=== PATIENT | female | born 1985 | race Caucasian/White ===

== ENCOUNTER 2020-10-08 15:44 | Emergency (ER) | payer OTHER, SELFPAY ==
--- NOTE | ~2020-10-08 | XR_ITS ---
EXAMINATION: XR chest 1V portable DATE: 10/08/2020 16:13 INDICATION: Shortness of breath. Headache. No sense of smell or taste. TECHNIQUE: frontal view of the chest was obtained. COMPARISON: None FINDINGS: The lungs are clear with no focal airspace opacities, pulmonary edema, pleural effusion or pneumothor ax. The cardiomediastinal silhouette is normal. Visualized bones and soft tissues are unremarkable. IMPRESSION: 1. No acute cardiopulmonary disease. Reviewed, dictated and finalized at location A. [employer] TRI[employer] SPECIALIST
[2020-10-08 15:48] VITALS: BP 105/88; PULSE 91; RESP 17; TEMP 36.1; O2SAT 100
[2020-10-08 16:02] VITALS: O2SAT 100
--- NOTE | 2020-10-08 16:08 | ED.GENADULT ---
HPI - General Adult General Chief complaint: Upper Respiratory Infection Stated complaint: trouble breathing Time Seen by Provider: 10/08/20 15:58 Source: patient Mode of arrival: ambulatory Limitations: no limitations History of Present Illness HPI narrative: Patient is a 34-year-old female with upper respiratory symptoms for 5 days congestion rhinorrhea headache loss of taste and smell cough productive of phlegm denies vomiting diarrhea intermittent fevers noted presents afebrile nontoxic-appearing not take anything for her symptoms has not been seen for this complaint Related Data Allergies Allergy/AdvReac Type Severity Reaction Status Date / Time codeine Allergy Unknown Vomiting Verified 10/08/20 15:50 oxytocin Allergy Unknown Vomiting Verified 10/08/20 15:50 acetaminophen AdvReac Unknown VOMITING Verified 10/08/20 15:50 Review of Systems Review of Systems: All systems reviewed & are unremarkable except as noted in HPI and below PMFSH Past Medical History Medical History Hepatitis C Social History Social History Gender identity (if verbalized by the patient): Female Exam Narrative: Exam Narrative: GENERAL: Well-appearing, well-nourished, and in no acute distress. HEAD: Normocephalic, atraumatic. EYES: PERRLA and EOMI. ENT: Nares clear, no rhinorrhea or epistaxis. CHEST: Clear to auscultation. No respiratory distress. No wheezes rales or rhonchi HEART: Regular rate and rhythm. No murmur heard. EXTREMITIES: Normal range of motion. No edema. SKIN: Warm, dry, no rash. NEURO: No focal deficits. Alert and oriented x3. Cranial nerves II through XII grossly intact PSYCH: Normal mood and affect. Course Course Emergency Course: Patient in the room in no distress aware of case findings treatment plan diagnosis will be discharged home normal vital signs no pneumonia tested for Covid provided with primary care follow-up and reasons to return Vital Signs Vital signs: Vital Signs Temperature 97 F L 10/08/20 15:48 Pulse Rate 91 10/08/20 15:48 Respiratory Rate 17 10/08/20 15:48 Blood Pressure 105/88 10/08/20 15:48 Pulse Oximetry 100 10/08/20 15:48 Temperature 97 F L 10/08/20 15:48 Pulse Rate 91 10/08/20 15:48 Respiratory Rate 17 10/08/20 15:48 Blood Pressure 105/88 10/08/20 15:48 Pulse Oximetry 100 10/08/20 16:02 Medical Decision Making MDM Narrative Medical decision making narrative: Patient with upper respiratory infection will be tested for Covid normal vital signs no pneumonia afebrile nontoxic-appearing. Vital Signs Vital Signs: Vital Signs Temperature 97 F L 10/08/20 15:48 Pulse Rate 91 10/08/20 15:48 Respiratory Rate 17 10/08/20 15:48 Blood Pressure 105/88 10/08/20 15:48 Pulse Oximetry 100 10/08/20 15:48 Temperature 97 F L 10/08/20 15:48 Pulse Rate 91 10/08/20 15:48 Respiratory Rate 17 10/08/20 15:48 Blood Pressure 105/88 10/08/20 15:48 Pulse Oximetry 100 10/08/20 16:02 Discharge Plan Discharge Clinical Impression: Upper respiratory infection Patient Disposition: Home, Self-Care Condition: Stable Instructions: Antibiotic Form, COVID-19 (Coronavirus Disease 2019) (ED) Additional Instructions: Follow up with your primary care provider within 1-2 days to set up for reevaluation of to obtain your COVID-19 results. Go to ER for shortness of breath, difficulty breathing, chest pain, fever/chills, weakness, nauseau/vomitting, etc. or any other concerns. Stay well-hydrated Take any prescribed medications as directed. Self quarantine until you have received your COVID-19 results If you do not have a drug allergy to tylenol or motrin and can tolerate it then take tylenol or motrin as needed for discomfort/pain. Prescriptions: New ibuprofen [IBU] 600 mg tablet 600 mg PO QID PRN (Reason: fever or pain)
[2020-10-08 17:28] VITALS: BP 122/59; PULSE 86; RESP 16; O2SAT 99
[2020-10-09 19:17] LABS: SARS-CoV-2 RNA PCR Negative
== END 2020-10-08 17:29 | disposition home or self-care (01) ==
PROVIDERS: Emergency Medicine; Emergency Provider Emergency Medicine
DX: J06.9 Acute upper respiratory infection, unspecified (principal); Z20.828 Contact with and (suspected) exposure to other viral communicable diseases; Z86.19 Personal history of other infectious and parasitic diseases
CPT/HCPCS: 71045; 87635; 99283; C9803; U0003

== ENCOUNTER 2024-12-23 15:10 | Emergency (ER) | payer SELFPAY ==
--- NOTE | 2024-12-23 15:13 | ED_ITS ---
HPI - URI/Sore Throat General Chief Complaint: Dental/Oral Stated Complaint: Congested/Dental Pain Time Seen by Provider: 12/23/24 15:11 Source: patient Mode of arrival: ambulatory Limitations: no limitations History of Present Illness HPI Narrative: Patient is a 39-year-old female who presents with congestion, sinus pressure and left upper dental pain for 1 week. Patient states her wisdom tooth is loose and has tried pulling it out herself. Patient reports swelling to left cheek and pain in left sinus cavity to touch. Has taken tylenol. Denies any fever, chills, nausea, vomiting, diarrhea. Related Data Allergies Allergy/AdvReac Type Severity Reaction Status Date / Time codeine Allergy Unknown Vomiting Verified 12/23/24 15:13 oxytocin Allergy Unknown Vomiting Verified 12/23/24 15:13 acetaminophen AdvReac Unknown VOMITING Verified 12/23/24 15:13 Review of Systems Review of Systems: All systems reviewed & are unremarkable except as noted in HPI and below Constitutional: Constitutional: Denies body ache(s), Denies fever(s), Denies headache(s), Denies malaise and Denies weakness Eyes: Eyes: Denies loss of vision ENT: Reports otalgia, Reports facial pain (jaw), Denies headache(s), Reports nasal congestion, Denies nasal discharge, Reports sinus pain and Denies sore throat Cardiovascular: Cardiovascular: Denies chest pain, Denies irregular heart rhythm and Denies dyspnea Respiratory: Respiratory: Denies dyspnea Gastrointestinal: Gastrointestinal: Denies abdominal pain, Denies melena, Denies hematochezia, Denies diarrhea, Denies nausea and Denies vomiting Musculoskeletal: Musculoskeletal: Denies back pain, Denies myalgias and Denies arthralgias Integumentary/Breasts: Skin/Breast: Denies pruritus and Denies rash Neurologic: Denies headache(s), Denies loss of vision and Denies weakness Psychiatric: Psychiatric: Reports no additional psychiatric complaints PMFSH Past Medical History Medical History Hepatitis C Social History Social History Gender identity (if verbalized by the patient): Female Comments At time of signature, agree with nursing past medical, surgical, social and family history. There is no relevant family history pertinent to the presenting complaint. Exam Const: General: cooperative, healthy appearing, comfortable, no acute distress and well nourished Nutritional Appearance: well nourished Orientation/consciousness: patient oriented x3 Limitations: no limitations HENMT: Head: normal to inspection, normocephalic and atraumatic Ears: hearing grossly normal bilaterally, external ears normal, TM's normal bilaterally and mastoids normal bilaterally Face/Nose/Sinus: Normal external nose present, normal facial exam and face symmetric Face and sinus: normal facial exam and face symmetric Mouth: Yes Normal oral and palatal mucosa present, Yes lip normal, Yes tongue normal, Yes Normal salivary glands and ducts present and Yes moist mucous membranes Teeth and gingiva: abnormal tooth and associated gingiva upper right third molar tender, with associated gingival edema and dentin fractured, caries, multiple restorations and poor dentition Eyes: General: appearance normal, both eyes and all related structures Alignment and Position: alignment normal and position normal Periorbital: periorbital findings normal Eyelids: eyelids normal Pupils: Equal, round and reactive pupils present EOM: EOMs intact bilaterally Neck: Neck: normal visual inspection, full ROM, no lymphadenopathy and supple Chest: Chest palpation & inspection: normal inspection of the chest Resp: Effort & Inspection: normal respiratory effort and able to speak in complete sentences Auscultation: clear to auscultation bilaterally Cardio: Rate: regular rate Rhythm: regular rhythm Heart sounds: S1 normal heart sound present and S2 normal heart sound present GI: Inspection: normal to inspection Skin: General skin exam: normal color and no rashes or lesions noted Neuro: General: patient oriented x3 and moves all extremities Cranial nerves: Yes Equal, round and reactive pupils present Speech: normal speech Gait exam (Neuro): Normal gait present Extrem: General: normal to inspection, full ROM and no edema Psych: Appearance: grossly normal and well kempt Mental Status: mental stat us grossly normal Speech and movement: Normal speech and movement present Affect: normal affect Attitude: cooperative Thought process: Normal thought process present Course Course Emergency Course: Patient is aware of diagnosis, understands and agrees to treatment plan. Anticipatory guidance given. Patient agrees to follow-up as directed and is aware of reasons to seek care at the emergency department. Portions of this record may have been created with voice recognition software Level of Care: Express Care Visit Vital Signs Vital signs: Reviewed MDM - URI/Sore Throat MDM Narrative Medical decision making narrative: Patient states she does not have a dentist and is unable to get into her PCP today due to them not being in office Fridays. Patient requesting tramadol for pain but states she has only taken Tylenol. Discussed alternating Tylenol and ibuprofen every 3 hours and that starting the antibiotic will help relieve pain due to reducing inflammation. Pt well hydrated appearing, in no respiratory distress, hemodynamically stable. Recommend supportive care. The patient is stable at time of discharge the clinical impression was discussed and the patient was given the opportunity to ask questions, which were addressed as completely as possible given the information available at present. Anticipatory guidance and return to care precautions were discussed and the importance of primary care follow-up was stressed and encouraged. The patient voiced understanding of the plan, indications to return, and the need for follow-up. Exam findings show no acute concerns or changes Patient is appropriate for outpatient treatment and follow-up. Differential Diagnosis Differential diagnosis: Likely upper respiratory infection, sinusitis, viral infection and other (Dental abscess) Medical Records Attestation: I reviewed the patient's medical records. Discharge Plan Discharge Clinical Impression: Dental abscess Patient Disposition: Home, Self-Care Condition: Stable Instructions: Dental Abscess (ED) Additional Instructions: Take antibiotic until it's gone. Brushing teeth at least twice daily with gentle flossing. Avoid temperature extremes---when you eat. Salt gargle to rinse your mouth after every meal You may apply ice to the face to reduce pain/swelling. For pain, you may take: Tylenol 650-1000mg by mouth every 4-6 hours. Do not exceed 4000mg in 24 hours. Advil (Ibuprofen) 600 mg by mouth every 6 hours. Do not exceed 2400mg in 24 hours. 8 AM: Tylenol 11 AM: Ibuprofen 2 PM: Tylenol 5 PM: Ibuprofen 8 PM: Tylenol 11 PM: Ibuprofen 2 AM: Tylenol 5 AM: Ibuprofen Also, recommend regular dental check up one-two times a year to prevent tooth decay and other periodontal disease. Follow-up with the dentist as soon as possible--see the list provided Patient Language: Nepalese Prescriptions: New amoxicillin-pot clavulanate 875-125 mg tablet 1 tablet PO Q12H 10 Days Qty: 20 0RF Follow-up/Referrals: UNKNOWN,DOCTOR [Non-Staff] - Stand Alone Forms: Work/School Release IP Time of Disposition: 15:48
[2024-12-23 15:25] VITALS: BP 140/89; PULSE 86; RESP 16; TEMP 37; O2SAT 100
== END 2024-12-23 15:50 | disposition home or self-care (01) ==
PROVIDERS: Emergency Provider Nurse Practitioner Family
DX: K04.7 Periapical abscess without sinus (principal)
CPT/HCPCS: 99213; G0463

== ENCOUNTER 2025-10-11 20:04 | Observation (INO) | payer SELFPAY ==
--- NOTE | ~2025-10-11 | US_ITS ---
EXAMINATION: US pelvic complete INDICATION: Left ovarian lesion. Comparison:Assess left ovarian lesion. TECHNIQUE: Multiple transabdominal sonographic images of the pelvis performed. FINDINGS: The uterus measures 8.6 x 4.4 x 5.9 cm. There is a small hyperechoic 2 cm mass of the uterus consistent with fibroid, paracentral to the right. The endometrial complex measures 10 mm. The right ovary measures 4.1 x 2.9 x 2.5 cm and the left ovary measures 4.4 x 3.7 x 5.5 cm. There are small follicles in each ovary. There is a left ovarian cyst measuring 4.3 cm. Normal doppler signal in both ovaries. There is no free fluid in the pelvis. There are no abnormal masses seen on either side. IMPRESSION: 1. Uterine fibroid measuring 2 cm. 2: Left ovarian cyst measuring 4.3 cm. Reviewed, dictated and finalized at location I. [employer]
--- NOTE | ~2025-10-11 | US_ITS ---
EXAMINATION: US retroperitoneal duplex ltd DATE: 10/12/2025 16:46 INDICATION: Portal hypertension. Assess for thrombosis. TECHNIQUE: Multiple grayscale, color Doppler, and pulsed Doppler images of the hepatic vasculature were obtained. COMPARISON: None. FINDINGS: The left, middle and right hepatic veins are patent with normal directional flow and venous waveforms. Normal arterial waveform with brisk systolic upstroke in the hepatic artery. The splenic vein and the main, left and right portal veins are patent with normal directional flow and normal portal venous waveforms in the portal veins. No evident thrombosis identified in the current study or on the prior postcontrast CT. IMPRESSION: 1. Normal ultrasound of the hepatic vasculature. Reviewed, dictated and finalized at location A. [facility]
--- NOTE | ~2025-10-11 | XR_ITS ---
XR chest 2V HOSTORY: chest pain COMPARISON:[ None] FINDINGS: Frontal and lateral views of the chest were obtained. The lungs are clear. The heart size is normal in size. Pulmonary vasculature is unremarkable. Osseous structures are intact. IMPRESSION: No acute lung findings.] [ ] Reviewed, dictated and finalized at location S. [facility]
--- NOTE | ~2025-10-11 | CT_ITS ---
CT abdomen pelvis w con Clinical History: elevated liver enzymes, nausea/vomit . Comparison: CT abdomen pelvis 12/03/2013 Technique: Axial images lung bases to symphysis pubis 100 mL Omnipaque 350 Coronal, sagittal reformats CT images acquired with automatic exposure control for dose reduction DLP: 1343 mGy-cm Findings: Lung bases: Mild interlobular septal thickening. Visualized heart and pericardium: Unremarkable. Liver: Enlarged. Periportal edema. Gallbladder: Wall thickening. Spleen: Enlarged. Pancreas: Unremarkable. Adrenal glands: Unremarkable. Kidneys: Right kidney- No hydronephrosis. No renal stones. Left kidney- No hydronephrosis. No renal stones. A few small cysts. Distal esophagus/stomach: Unremarkable. Small bowel loops: Normal caliber and wall thickness. Colon: Normal caliber and wall thickness. Normal RLQ appendix. Nodes: No enlarged nodes. Peritoneum: No ascites. No free air. Urinary bladder: Unremarkable. Uterus: Unremarkable. Adnexa: Cystic focus left side. Bones: No acute bony abnormality. Soft tissues: Unremarkable. Aorta: No aneurysm or dissection. IVC: Unremarkable. Main portal vein/SMV/splenic vein: Patent. IMPRESSION: 1. Probable portal hypertension. 2. Nonspecific periportal edema. 3. Nonspecific gallbladder wall thickening. Reviewed, dictated and finalized at location R. ANALYST
--- NOTE | ~2025-10-11 | CT_ITS ---
EXAMINATION: CTA chest PE protocol DATE: 10/11/2025 23:09 INDICATION: Chest pain. Shortness of breath. TECHNIQUE: Computed tomography angiography (CTA) of the chest was performed with 100 mL Omnipaque-350 intravenous contrast timed to evaluate the pulmonary arteries. Coronal maximum intensity projection 3D-reconstructions were created by the technologist. Automated exposure control and iterative reconstruction technique were employed. The dose-length product was 296.51 mGy-cm. COMPARISON: None. FINDINGS: The lungs demonstrate mild atelectasis. No pleural effusion. The left thyroid lobe is enlarged and extends into the superior mediastinum. The heart size is normal. No pericardial effusion. There is no pulmonary embolus. There is a small sliding hiatal hernia. There is mild thoracic spondylosis. IMPRESSION: 1. No pulmonary embolus. Reviewed, dictated and finalized at location E. SPECIALTY IMPRESSION: 1. No pulmonary embolus.
--- NOTE | ~2025-10-11 | CT_ITS ---
CT HEAD NON-CONTRAST Clinical History: headache Comparison: None Technique: Unenhanced axial images skull base to vertex Coronal, sagittal reformats CT images acquired with automatic exposure control for dose reduction DLP: 681 mGy-cm Findings: Sulci, ventricles: Unremarkable. No intracerebral hemorrhage. No evidence acute territorial infarct. No mass effect, midline shift. Bony calvarium intact. Visualized paranasal sinuses: Clear. Mastoid air cells: Clear. IMPRESSION: 1. No acute intracranial findings. Reviewed, dictated and finalized at location R. TRICAL INTEGRATOR
[2025-10-11 19:58] VITALS: BP 105/56; PULSE 112; RESP 16; TEMP 36.4; O2SAT 100
--- NOTE | 2025-10-11 20:13 | ECG_ITS ---
Test Date: 2025-10-11 20:34:35 Measurements Intervals [place] Rate: 105 P: 62 [place]: 126 QRS: 71 QRSD: 93 T: 57 QT: 349 QTc: 462 Interpretive Statements SINUS TACHYCARDIA BORDERLINE ECG No previous ECG available for comparison Electronically Signed On 10-12-2025 06:08:24 JEWELRY DRILLING MACHINE OPERATOR by Milo Rodriguez D.O.
--- NOTE | 2025-10-11 20:58 | ED_ITS ---
HPI - Chest Pain General Chief Complaint: Chest Pain <Diane Magallon APRN - Last Filed: 10/12/25 03:23> Stated Complaint: N/V, ABD PAIN <Diane Magallon APRN - Last Filed: 10/12/25 03:23> Time Seen by Provider: 10/11/25 20:05 <Diane Magallon APRN - Last Filed: 10/12/25 03:23> History of Present Illness HPI narrative: Patient is a 39-year-old female who presents to the ER with nausea, cold sweats, vomiting, chest pain, mild shortness of breath, and lightheadedness that started tonight. She reports she has never experienced these symptoms before. Patient reports to RN that she is a methamphetamine user and last used yesterday. She denies any medical history relevant to this ER visit. Patient denies any recent fevers, acute back pain, urinary symptoms, or headache. <Diane Magallon APRN - Last Filed: 10/12/25 03:23> Related Data Allergies/Adverse Reactions: Allergies Allergy/AdvReac Type Severity Reaction Status Date / Time codeine Allergy Unknown Vomiting Verified 12/23/24 15:13 oxytocin Allergy Unknown Vomiting Verified 12/23/24 15:13 acetaminophen AdvReac Unknown VOMITING Verified 12/23/24 15:13 <Diane Magallon APRN - Last Filed: 10/12/25 03:23> Review of Systems 2 Review of Systems: All systems reviewed & are unremarkable except as noted in HPI and below <Diane Magallon APRN - Last Filed: 10/12/25 03:23> [facility] Past Medical History Medical History: Medical History Hepatitis C <Diane Magallon APRN - Last Filed: 10/12/25 03:23> Social History Social History: Social History Gender identity (if verbalized by the patient): Female <Diane Magallon APRN - Last Filed: 10/12/25 03:23> Exam 2 Narrative: GENERAL: Ill appearing, well-nourished, non-toxic, in mild distress d/t pain. HEAD: Normocephalic, atraumatic. PERRLA NECK: Supple. No adenopathy, no masses. RESPIRATORY: Airway patent, respirations nonlabored. Clear to auscultation bilaterally, no rales, rhonchi, wheezing. CARDIOVASCULAR: Tachycardia without murmurs, rubs, or gallops. Peripheral pulses 2+ and equal bilaterally. ABDOMINAL: Soft, nontender, nondistended. Normoactive BS. MUSCULOSKELETAL: Moves all extremities. Strength/ROM intact without gross deformities. SKIN: Warm, dry, normal color. No rashes. NEURO: A&O X3. Speech clear. Cranial nerves II-XII intact. PSYCHIATRIC: Appropriate mood and affect. Normal interaction. <Diane Magallon APRN - Last Filed: 10/12/25 03:23> Course Course Emergency Course: 03:30 - I took over care from the midlevel. Patient is receiving her 3 L of fluids pressure is the softer side CT of the pelvis is pending, CT of the head is pending, a CK was added on the patient's workup and is pending. CT of the head preliminary report reveals no acute intracranial findings, no intracranial hemorrhage. CT of the abdomen pelvis preliminary report reveals mild gastric wall thickening which may represent gastritis, nonspecific hepatic periportal edema, enlargement of the portal vein and splenomegaly suggesting underlying portal venous hypertension, 5.5 cm left ovarian lesion which can be further evaluated with ultrasound. I spoke with the hospitalist on-call who has accepted the patient for admission. <Enrique Riley, - Last Filed: 10/12/25 04:17> CAMPAIGN COORDINATOR/PA Physician Supervision This visit was performed by both a physician and an APC. I performed all aspects of the MDM as documented. <Enrique Riley DO - Last Filed: 10/12/25 04:17> Vital Signs Vital signs: Vital Signs Temperature 97.6 F 10/11/25 19:58 Pulse Rate 112 H 10/11/25 19:58 Respiratory Rate 16 10/11/25 19:58 Blood Pressure 105/56 L 10/11/25 19:58 Pulse Oximetry 100 10/11/25 19:58 Oxygen Delivery Room Air 10/11/25 19:58 Temperature 97.6 F 10/11/25 19:58 Pulse Rate 90 10/12/25 04:00 Respiratory Rate 19 10/12/25 04:00 Blood Pressure 100/68 10/12/25 04:00 Pulse Oximetry 100 10/12/25 04:00 Oxygen Delivery Room Air 10/11/25 19:58 <Diane Magallon, [employer] TRAINER - Last Filed: 10/12/25 03:23> Vital Signs Temperature 97.6 F 10/11/25 19:58 Pulse Rate 112 H 10/11/25 19:58 Respiratory Rate 16 10/11/25 19:58 Blood Pressure 105/56 L 10/11/25 19:58 Pulse Oximetry 100 10/11/25 19:58 Oxygen Delivery Room Air 10/11/25 19:58 Temperature 97.6 F 10/11/25 19:58 Pulse Rate 90 10/12/25 04:00 Respiratory Rate 19 10/12/25 04:00 Blood Pressure 100/68 10/12/25 04:00 Pulse Oximetry 100 10/12/25 04:00 Oxygen Delivery Room Air 10/11/25 19:58 <Enrique Riley, DO - Last Filed: 10/12/25 04:17> [facility] MDM Narrative Medical decision making narrative: Patient is a 39-year-old female who presents to the ER with nausea, cold sweats, vomiting, chest pain, mild shortness of breath, and lightheadedness that started tonight. She reports she has never experienced these symptoms before. Patient reports to RN that she is a methamphetamine user and last used yesterday. She denies any medical history relevant to this ER visit. Patient denies any recent fevers, acute back pain, or urinary symptoms. *Pt reports she is currently on her menstrual period. Upon further assessment pt endorses a headache and photophobia. She reports she does not drink alcohol very often. Labs Ordered: CBC, CMP, ethanol, PTT, INR, lactic acid, COVID/flu/RSV, troponin, TSH, D-dimer, pro BNP, magnesium, UA, UDS Imaging Ordered: CTA chest PE protocol, chest x-ray Medications Ordered: 1 L normal saline IV bolus, potassium IV, potassium p.o. Results: Patient's CTA chest indicates accounting for respiratory artifact, there is no evidence for pulmonary embolism. No focal airspace consolidation. No pleural effusion or pneumothorax. No incidental findings. Diagnosis: elevated d. dimer, chest pain, headache, nausea/vomiting Consults: 299- Spoke with hospitalist, Dr. Chavarria, who advised pt have CT head and CT abdomen/pelvis. MDM: Pt's BP remain low (90s/50s) after 2L NS IV bolus, so she will receive another 1L NS IV bolus. She continues to endorse chest pain so pt will be given a dose of Morphine. Pt reports the Zofran helped relieve her nausea. [id number]- Pt's care signed out to Dr. Riley pending CT scan results. <Diane Magallon, GREEN JOBS TRAINER - Last Filed: 10/12/25 03:23> Patient is a 39-year-old female who presents to the ER with nausea, cold sweats, vomiting, chest pain, mild shortness of breath, and lightheadedness that started tonight. She reports she has never experienced these symptoms before. Patient reports to RN that she is a methamphetamine user and last used yesterday. She denies any medical history relevant to this ER visit. Patient denies any recent fevers, acute back pain, or urinary symptoms. *Pt reports she is currently on her menstrual period. Upon further assessment pt endorses a headache and photophobia. She reports she does not drink alcohol very often. Labs Ordered: CBC, CMP, ethanol, PTT, INR, lactic acid, COVID/flu/RSV, troponin, TSH, D-dimer, pro BNP, magnesium, UA, UDS Imaging Ordered: CTA chest PE protocol, chest x-ray Medications Ordered: 1 L normal saline IV bolus, potassium IV, potassium p.o. Results: Patient's CTA chest indicates accounting for respiratory artifact, there is no evidence for pulmonary embolism. No focal airspace consolidation. No pleural effusion or pneumothorax. No incidental findings. Diagnosis: elevated d. dimer, chest pain, headache, nausea/vomiting Consults: 299- Spoke with hospitalist, Dr. Chavarria, who advised pt have CT head and CT abdomen/pelvis. MDM: Pt's BP remain low (90s/50s) after 2L NS IV bolus, so she will receive another 1L NS IV bolus. She continues to endorse chest pain so pt will be given a dose of Morphine. Pt reports the Zofran helped relieve her nausea. [id number]- Pt's care signed out to Dr. Riley pending CT scan results. <Enrique Riley, DO - Last Filed: 10/12/25 04:17> Differential Diagnosis Differential Diagnosis: Pneumonia, STEMI, drug abuse, pulmonary embolism <Diane Magallon APRN - Last Filed: 10/12/25 03:23> Lab Data MDM Lab Attestation statement: I personally reviewed the patient's lab results. <Diane Magallon GRE[employer] JO[employer] TRAINER - Last Filed: 10/12/25 03:23> Result diagrams: 10/11/25 21:00 10/12/25 01:52 <Diane Magallon APRN - Last Filed: 10/12/25 03:23> Labs: Lab Results 10/11/25 10/11/25 10/11/25 Range/Units 21:00 22:49 22:53 WBC 8.3 (4.5-10.0) K/mm3 RBC 4.56 (4.2-5.4) M/mm3 Hgb 13.2 (12.0-15.0) g/dL Hct 40.4 (37.0-47.0) % MCV 88.6 (80-100) fl MCH 28.9 (26-34) pg MCHC 32.7 (32-36) g/dl RDW 13.2 (11.5-14.5) % Plt Count 126 L (150-375) k/mm3 MPV 10.6 H (7.4-10.4) fl Immature Gran % (Auto) 0.4 (0-0.5) % Neut % (Auto) 96.5 H (45.5-73.1) % Lymph % (Auto) 2.5 L (18.3-44.2) % [place] % (Auto) 0.2 L (2.6-8.5) % Eos % (Auto) 0.0 (0-4.4) % Baso % (Auto) 0.4 (0.2-1.2) % Lymph # (Auto) 0.21 L (0.9-3.2) K/mm3 [place] # (Auto) 0.0 L (0.1-0.6) K/mm3 Eos # (Auto) 0.0 (0-0.3) K/mm3 Baso # (Auto) 0.0 (0.0-0.1) K/mm3 Abs Immat Gran (auto) 0.03 (0.00-0.031) K/mm3 Absolute Neuts (auto) 8.0 H (1.3-6.7) K/mm3 Absolute Nucleated RBC 0.000 (0.0-0.012) K/mm3 Nucleated RBC % 0.0 (0.0-0.2) % PT (11.1-14.7) Seconds INR APTT (22.3-36.8) Seconds Fibrinogen (215-510) mg/dl D-Dimer > 20.00 H (<0.48) ug/mL Sodium 134 L (137-145) mmol/L Potassium 2.8 L* (3.4-5.0) mmol/L Chloride 108 H (98-107) mmol/L Carbon Dioxide 23 (22-30) mmol/L Anion Gap 3 L (4-12) mmol/L BUN 13 (7-17) mg/dL Creatinine 0.72 (0.7-1.0) mg/dL Estim Creat Clear Calc 99 ml/min Estimated GFR > 60 (59 - ) Glucose 97 (65-110) mg/dL Lactic Acid (0.7-2.0) mmol/L Calcium 8.1 L (8.4-10.2) mg/dL Magnesium 1.6 (1.6-2.3) mg/dL Total Bilirubin 0.6 (0.2-1.3) mg/dL AST 114 H (14-36) U/L ALT 78 H (6-35) U/L Alkaline Phosphatase 107 (38-126) U/L Total Creatine Kinase Troponin I < 0.012 (0.000-0.034) ng/mL NT-Pro-B Natriuret Pep 76 (19.9-100) pg/mL Total Protein 6.8 (6.3-8.2) g/dL Albumin 3.7 (3.5-5.1) g/dL Lipase 48 (23-300) U/L TSH (Reflex) 0.793 (0.465-4.68) uIU/mL Urine Color Yellow (Yellow) Urine Appearance Clear (Clear) Urine pH 5.5 (5.0-9.0) Ur Specific [place] 1.015 (1.001-1.035) Urine Protein 1+ H (Negative) mg/dL Urine Glucose (UA) Negative (Negative) mg/dL Urine Ketones Negative (Negative) mg/dL Ur Blood (Man) 2+ H (Negative) Urine Nitrate Negative (Negative) Urine Bilirubin Negative (Negative) Urine Urobilinogen 1.0 (<2.0) mg/dL Leukocyte Esterase Rfl Negative (Negative) ELIZABETH/UL Urine RBC 3-5 H (0-2) /hpf Urine WBC 0-5 (0-3) /hpf Ur Squamous Epith Cells Occasional (Few) /hpf Urine Bacteria None seen /hpf Urine Casts 3-5 POC Urine HCG, Qual Negative (Negative) Urine Opiates Screen Negative (Negative) Urine Methadone Screen Negative (Negative) Ur Barbiturates Screen Negative (Negative) Ur Phencyclidine Scrn Negative (Negative) Ur Amphetamine Screen Positive A (Negative) U Benzodiazepines Scrn Negative (Negative) Urine Cocaine Screen Negative (Negative) U Cannabinoids Screen Positive A (Negative) Ethyl Alcohol < 10 (<10) mg/dL Influenza A (RT-PCR) (Negative) Influenza B (RT-PCR) (Negative) RSV (RT-PCR) (Negative) SARS-CoV-2 RNA (RT-PCR) (Negative) 10/12/25 Range/Units 01:52 WBC (4.5-10.0) K/mm3 RBC (4.2-5.4) M/mm3 Hgb (12.0-15.0) g/dL Hct (37.0-47.0) % MCV (80-100) fl MCH (26-34) pg MCHC (32-36) g/dl RDW (11.5-14.5) % Plt Count (150-375) k/mm3 MPV (7.4-10.4) fl Immature Gran % (Auto) (0-0.5) % Neut % (Auto) (45.5-73.1) % Lymph % (Auto) (18.3-44.2) % [place] % (Auto) (2.6-8.5) % Eos % (Auto) (0-4.4) % Baso % (Auto) (0.2-1.2) % Lymph # (Auto) (0.9-3.2) K/mm3 [place] # (Auto) (0.1-0.6) K/mm3 Eos # (Auto) (0-0.3) K/mm3 Baso # (Auto) (0.0-0.1) K/mm3 Abs Immat Gran (auto) (0.00-0.031) K/mm3 Absolute Neuts (auto) (1.3-6.7) K/mm3 Absolute Nucleated RBC (0.0-0.012) K/mm3 Nucleated RBC % (0.0-0.2) % PT 16.9 H (11.1-14.7) Seconds INR 1.4 APTT 32.2 (22.3-36.8) Seconds Fibrinogen 246 (215-510) mg/dl D-Dimer > 20.00 H (<0.48) ug/mL Sodium 134 L (137-145) mmol/L Potassium 3.7 (3.4-5.0) mmol/L Chloride 110 H (98-107) mmol/L Carbon Dioxide 22 (22-30) mmol/L Anion Gap 2 L (4-12) mmol/L BUN 12 (7-17) mg/dL Creatinine 0.68 L (0.7-1.0) mg/dL Estim Creat Clear Calc 104 ml/min Estimated GFR > 60 (59 - ) Glucose 105 (65-110) mg/dL Lactic Acid 1.3 (0.7-2.0) mmol/L Calcium 7.8 L (8.4-10.2) mg/dL Magnesium (1.6-2.3) mg/dL Total Bilirubin (0.2-1.3) mg/dL AST (14-36) U/L ALT (6-35) U/L Alkaline Phosphatase (38-126) U/L Total Creatine Kinase Pending Troponin I < 0.012 (0.000-0.034) ng/mL NT-Pro-B Natriuret Pep (19.9-100) pg/mL Total Protein (6.3-8.2) g/dL Albumin (3.5-5.1) g/dL Lipase (23-300) U/L TSH (Reflex) (0.465-4.68) uIU/mL Urine Color (Yellow) Urine Appearance (Clear) Urine pH (5.0-9.0) Ur Specific [place] (1.001-1.035) Urine Protein (Negative) mg/dL Urine Glucose (UA) (Negative) mg/dL Urine Ketones (Negative) mg/dL Ur Blood (Man) (Negative) Urine Nitrate (Negative) Urine Bilirubin (Negative) Urine Urobilinogen (<2.0) mg/dL Leukocyte Esterase Rfl (Negative) ELIZABETH/UL Urine RBC (0-2) /hpf Urine WBC (0-3) /hpf Ur Squamous Epith Cells (Few) /hpf Urine Bacteria /hpf Urine Casts POC Urine HCG, Qual (Negative) Urine Opiates Screen (Negative) Urine Methadone Screen (Negative) Ur Barbiturates Screen (Negative) Ur Phencyclidine Scrn (Negative) Ur Amphetamine Screen (Negative) U Benzodiazepines Scrn (Negative) Urine Cocaine Screen (Negative) U Cannabinoids Screen (Negative) Ethyl Alcohol (<10) mg/dL Influenza A (RT-PCR) Negative (Negative) Influenza B (RT-PCR) Negative (Negative) RSV (RT-PCR) Negative (Negative) SARS-CoV-2 RNA (RT-PCR) Negative (Negative) <Diane Magallon, GRE[employer] JO[employer] TRAINER - Last Filed: 10/12/25 03:23> Lab Results 10/11/25 10/11/25 10/11/25 Range/Units 21:00 22:49 22:53 WBC 8.3 (4.5-10.0) K/mm3 RBC 4.56 (4.2-5.4) M/mm3 Hgb 13.2 (12.0-15.0) g/dL Hct 40.4 (37.0-47.0) % MCV 88.6 (80-100) fl MCH 28.9 (26-34) pg MCHC 32.7 (32-36) g/dl RDW 13.2 (11.5-14.5) % Plt Count 126 L (150-375) k/mm3 MPV 10.6 H (7.4-10.4) fl Immature Gran % (Auto) 0.4 (0-0.5) % Neut % (Auto) 96.5 H (45.5-73.1) % Lymph % (Auto) 2.5 L (18.3-44.2) % [place] % (Auto) 0.2 L (2.6-8.5) % Eos % (Auto) 0.0 (0-4.4) % Baso % (Auto) 0.4 (0.2-1.2) % Lymph # (Auto) 0.21 L (0.9-3.2) K/mm3 [place] # (Auto) 0.0 L (0.1-0.6) K/mm3 Eos # (Auto) 0.0 (0-0.3) K/mm3 Baso # (Auto) 0.0 (0.0-0.1) K/mm3 Abs Immat Gran (auto) 0.03 (0.00-0.031) K/mm3 Absolute Neuts (auto) 8.0 H (1.3-6.7) K/mm3 Absolute Nucleated RBC 0.000 (0.0-0.012) K/mm3 Nucleated RBC % 0.0 (0.0-0.2) % PT (11.1-14.7) Seconds INR APTT (22.3-36.8) Seconds Fibrinogen (215-510) mg/dl D-Dimer > 20.00 H (<0.48) ug/mL Sodium 134 L (137-145) mmol/L Potassium 2.8 L* (3.4-5.0) mmol/L Chloride 108 H (98-107) mmol/L Carbon Dioxide 23 (22-30) mmol/L Anion Gap 3 L (4-12) mmol/L BUN 13 (7-17) mg/dL Creatinine 0.72 (0.7-1.0) mg/dL Estim Creat Clear Calc 99 ml/min Estimated GFR > 60 (59 - ) Glucose 97 (65-110) mg/dL Lactic Acid (0.7-2.0) mmol/L Calcium 8.1 L (8.4-10.2) mg/dL Magnesium 1.6 (1.6-2.3) mg/dL Total Bilirubin 0.6 (0.2-1.3) mg/dL AST 114 H (14-36) U/L ALT 78 H (6-35) U/L Alkaline Phosphatase 107 (38-126) U/L Total Creatine Kinase Troponin I < 0.012 (0.000-0.034) ng/mL NT-Pro-B Natriuret Pep 76 (19.9-100) pg/mL Total Protein 6.8 (6.3-8.2) g/dL Albumin 3.7 (3.5-5.1) g/dL Lipase 48 (23-300) U/L TSH (Reflex) 0.793 (0.465-4.68) uIU/mL Urine Color Yellow (Yellow) Urine Appearance Clear (Clear) Urine pH 5.5 (5.0-9.0) Ur Specific [place] 1.015 (1.001-1.035) Urine Protein 1+ H (Negative) mg/dL Urine Glucose (UA) Negative (Negative) mg/dL Urine Ketones Negative (Negative) mg/dL Ur Blood (Man) 2+ H (Negative) Urine Nitrate Negative (Negative) Urine Bilirubin Negative (Negative) Urine Urobilinogen 1.0 (<2.0) mg/dL Leukocyte Esterase Rfl Negative (Negative) ELIZABETH/UL Urine RBC 3-5 H (0-2) /hpf Urine WBC 0-5 (0-3) /hpf Ur Squamous Epith Cells Occasional (Few) /hpf Urine Bacteria None seen /hpf Urine Casts 3-5 POC Urine HCG, Qual Negative (Negative) Urine Opiates Screen Negative (Negative) Urine Methadone Screen Negative (Negative) Ur Barbiturates Screen Negative (Negative) Ur Phencyclidine Scrn Negative (Negative) Ur Amphetamine Screen Positive A (Negative) U Benzodiazepines Scrn Negative (Negative) Urine Cocaine Screen Negative (Negative) U Cannabinoids Screen Positive A (Negative) Ethyl Alcohol < 10 (<10) mg/dL Influenza A (RT-PCR) (Negative) Influenza B (RT-PCR) (Negative) RSV (RT-PCR) (Negative) SARS-CoV-2 RNA (RT-PCR) (Negative) 10/12/25 Range/Units 01:52 WBC (4.5-10.0) K/mm3 RBC (4.2-5.4) M/mm3 Hgb (12.0-15.0) g/dL Hct (37.0-47.0) % MCV (80-100) fl MCH (26-34) pg MCHC (32-36) g/dl RDW (11.5-14.5) % Plt Count (150-375) k/mm3 MPV (7.4-10.4) fl Immature Gran % (Auto) (0-0.5) % Neut % (Auto) (45.5-73.1) % Lymph % (Auto) (18.3-44.2) % [place] % (Auto) (2.6-8.5) % Eos % (Auto) (0-4.4) % Baso % (Auto) (0.2-1.2) % Lymph # (Auto) (0.9-3.2) K/mm3 [place] # (Auto) (0.1-0.6) K/mm3 Eos # (Auto) (0-0.3) K/mm3 Baso # (Auto) (0.0-0.1) K/mm3 Abs Immat Gran (auto) (0.00-0.031) K/mm3 Absolute Neuts (auto) (1.3-6.7) K/mm3 Absolute Nucleated RBC (0.0-0.012) K/mm3 Nucleated RBC % (0.0-0.2) % PT 16.9 H (11.1-14.7) Seconds INR 1.4 APTT 32.2 (22.3-36.8) Seconds Fibrinogen 246 (215-510) mg/dl D-Dimer > 20.00 H (<0.48) ug/mL Sodium 134 L (137-145) mmol/L Potassium 3.7 (3.4-5.0) mmol/L Chloride 110 H (98-107) mmol/L Carbon Dioxide 22 (22-30) mmol/L Anion Gap 2 L (4-12) mmol/L BUN 12 (7-17) mg/dL Creatinine 0.68 L (0.7-1.0) mg/dL Estim Creat Clear Calc 104 ml/min Estimated GFR > 60 (59 - ) Glucose 105 (65-110) mg/dL Lactic Acid 1.3 (0.7-2.0) mmol/L Calcium 7.8 L (8.4-10.2) mg/dL Magnesium (1.6-2.3) mg/dL Total Bilirubin (0.2-1.3) mg/dL AST (14-36) U/L ALT (6-35) U/L Alkaline Phosphatase (38-126) U/L Total Creatine Kinase Pending Troponin I < 0.012 (0.000-0.034) ng/mL NT-Pro-B Natriuret Pep (19.9-100) pg/mL Total Protein (6.3-8.2) g/dL Albumin (3.5-5.1) g/dL Lipase (23-300) U/L TSH (Reflex) (0.465-4.68) uIU/mL Urine Color (Yellow) Urine Appearance (Clear) Urine pH (5.0-9.0) Ur Specific [place] (1.001-1.035) Urine Protein (Negative) mg/dL Urine Glucose (UA) (Negative) mg/dL Urine Ketones (Negative) mg/dL Ur Blood (Man) (Negative) Urine Nitrate (Negative) Urine Bilirubin (Negative) Urine Urobilinogen (<2.0) mg/dL Leukocyte Esterase Rfl (Negative) ELIZABETH/UL Urine RBC (0-2) /hpf Urine WBC (0-3) /hpf Ur Squamous Epith Cells (Few) /hpf Urine Bacteria /hpf Urine Casts POC Urine HCG, Qual (Negative) Urine Opiates Screen (Negative) Urine Methadone Screen (Negative) Ur Barbiturates Screen (Negative) Ur Phencyclidine Scrn (Negative) Ur Amphetamine Screen (Negative) U Benzodiazepines Scrn (Negative) Urine Cocaine Screen (Negative) U Cannabinoids Screen (Negative) Ethyl Alcohol (<10) mg/dL Influenza A (RT-PCR) Negative (Negative) Influenza B (RT-PCR) Negative (Negative) RSV (RT-PCR) Negative (Negative) SARS-CoV-2 RNA (RT-PCR) Negative (Negative) <Enrique Riley DO - Last Filed: 10/12/25 04:17> Imaging Data Attestation: I personally reviewed and interpreted this imaging study as follows: < Diane Magallon APRN - Last Filed: 10/12/25 03:23> Radiologist's impression: ITS Impressions Chest X-Ray 10/11/25 20:56 IMPRESSION: No acute lung findings.] [ ] <Diane Magallon APRN - Last Filed: 10/12/25 03:23> ITS Impressions Chest X-Ray 10/11/25 20:56 IMPRESSION: No acute lung findings.] [ ] <Enrique Riley DO - Last Filed: 10/12/25 04:17> Critical Care Time Critical Care Time Critical Care Time: Yes <Enrique Riley DO - Last Filed: 10/12/25 04:17> Indication: Hypotension, hypokalemia. <Enrique Riley DO - Last Filed: 10/12/25 04:17> Time Type: Intermittent <Enrique Riley DO - Last Filed: 10/12/25 04:17> Initial evaluation, discuss w/ involved parties, attempting to gather old records: 10 minutes <Enrique Riley DO - Last Filed: 10/12/25 04:17> Documenting medical record: 10 minutes <Enrique Riley DO - Last Filed: 10/12/25 04:17> Review of results (EKG's, labs, imaging): 10 minutes <Enrique Riley DO - Last Filed: 10/12/25 04:17> Serial repeat bedside evaluation: 10 minutes <Enrique Riley DO - Last Filed: 10/12/25 04:17> Discussing case with multiple memebers of the care team and consultants: 5 minutes <Enrique Riley DO - Last Filed: 10/12/25 04:17> Total Critical Care Time: 45 <Enrique Riley DO - Last Filed: 10/12/25 04:17> Discharge Plan Discharge Clinical Impression: Chest pain, Dehydration, Elevated d-dimer, Hypotension, Acute hypokalemia, Substance abuse, Portal venous hypertension, Gastritis, Lesion of left ovary <Diane Magallon APRN - Last Filed: 10/12/25 03:23> Patient Disposition: Still a Patient <Diane Magallon APRN - Last Filed: 10/12/25 03:23> Condition: Serious <Diane Magallon APRN - Last Filed: 10/12/25 03:23> Instructions: Antibiotic Form <Diane Magallon APRN - Last Filed: 10/12/25 03:23> Patient Language: Peruvian <Diane Magallon APRN - Last Filed: 10/12/25 03:23> Prescriptions: No Action amoxicillin-pot clavulanate 875-125 mg tablet 1 tablet PO Q12H 10 Days Qty: 20 0RF <Diane Magallon APRN - Last Filed: 10/12/25 03:23> Follow-up/Referrals: PHYSICIAN,EXPANDED FUNCTION DENTAL ASSISTANT [Primary Care Provider, Internal Medicine] <Diane Magallon APRN - Last Filed: 10/12/25 03:23> Time of Disposition: 04:15 <Diane Magallon APRN - Last Filed: 10/12/25 03:23> 04:15 <Enrique Riley DO - Last Filed: 10/12/25 04:17>
[2025-10-11] MEDS: SODIUM CHLORIDE 0.9% IV 1,000 ML 999 ML IV CONT (21:01)
[2025-10-11 21:08] LABS: Hematocrit 40.4 % (37.0-47.0); Hemoglobin 13.2 g/dL (12.0-15.0); Immature Granulocyte Percent A 0.4 % (0-0.5); Lymphocytes Absolute Auto 0.21 K/mm3 (0.9-3.2); Mean Corpuscular HGB Conc 32.7 g/dl (32-36); Mean Corpuscular Hemoglobin 28.9 pg (26-34); Mean Corpuscular Volume 88.6 fl (80-100); Nucleated Red Blood Cells Absolute Auto 0.000 K/mm3 (0.0-0.012); Nucleated Red Blood Cells Perc 0.0 % (0.0-0.2); Platelet Count Result 126 k/mm3 (150-375); Red Blood Count 4.56 M/mm3 (4.2-5.4); White Blood Count 8.3 K/mm3 (4.5-10.0)
[2025-10-11 21:21] LABS: Alanine Aminotransferase 78 U/L (6-35); Albumin Level 3.7 g/dL (3.5-5.1); Alkaline Phosphatase 107 U/L (38-126); Anion Gap 3 mmol/L (4-12); Aspartate Amino Transferase 114 U/L (14-36); Bilirubin,Total 0.6 mg/dL (0.2-1.3); Blood Urea Nitrogen 13 mg/dL (7-17); Calcium 8.1 mg/dL (8.4-10.2); Carbon Dioxide 23 mmol/L (22-30); Chloride 108 mmol/L (98-107); Estimated CRCL calculation 99 ml/min; Estimated Glomerular Filt Rate > 60; Glucose 97 mg/dL (65-110); Lipase 48 U/L (23-300); Potassium 2.8 mmol/L (3.4-5.0); Sodium 134 mmol/L (137-145); Total Protein 6.8 g/dL (6.3-8.2)
[2025-10-11 21:32] LABS: NT Pro B Type Natriuretic Pept 76 pg/mL (19.9-100); Troponin I < 0.012 ng/mL (0.000-0.034)
[2025-10-11] MEDS: POTASSIUM CHLORIDE 20 MEQ PACKET (FOR LIQUID) 40 MEQ PO (21:38)
[2025-10-11] MEDS: POTASSIUM CHLORIDE INJ 40 MEQ in SODIUM CHLORIDE 0.9% IV 500 ML 130 MEQ IVPB (21:39)
[2025-10-11 21:40] LABS: Magnesium 1.6 mg/dL (1.6-2.3)
[2025-10-11 22:55] LABS: BEDSIDEPREGUCG Negative (Negative)
[2025-10-11 23:00] LABS: Add Urine Microscopic? YES; Appearance Urine Clear (Clear); Glucose Urine UA Negative (Negative); Leukocyte Esterase Ur Negative LEU/UL (Negative); Nitrate Urine Negative (Negative); Specific Grav Ur 1.015 (1.001-1.035)
[2025-10-11 23:13] VITALS: BP 95/60; PULSE 102; RESP 13; O2SAT 100
[2025-10-11 23:15] VITALS: BP 91/63; PULSE 104; RESP 14; O2SAT 100
[2025-10-11 23:16] LABS: Cannabinoid Screen Urine Positive (Negative)
[2025-10-11 23:30] VITALS: BP 94/70; O2SAT 100
[2025-10-11 23:45] VITALS: BP 93/67; O2SAT 99
[2025-10-12] VITALS (28 sets, daily range): BP systolic 80–101; BP diastolic 41–68; PULSE 80–99; RESP 14–20; TEMP 36.4–36.8; O2SAT 97–100; BMI 31.1
--- NOTE | 2025-10-12 01:53 | ECG_ITS ---
Test Date: 2025-10-12 01:58:06 Measurements Intervals [place] Rate: 92 P: 62 PA: 128 QRS: 75 QRSD: 85 T: 69 QT: 354 QTc: 440 Interpretive Statements SINUS RHYTHM WITH OCCASIONAL VENTRICULAR PREMATURE COMPLEXES BASELINE ARTIFACT- I, II, AVR, AVL, AVF BORDERLINE ECG Compared to ECG 10/11/2025 20:34:35 HEART RATE HAS DECREASED Ventricular premature complex(es) now present Electronically Signed On 10-12-2025 06:09:06 NEURODIAGNOSTIC TECHNOLOGIST by Milo Rodriguez D.O.
[2025-10-12 01:55] LABS: Thyroid Stimulating Hormone Reflex 0.793 uIU/mL (0.465-4.68)
[2025-10-12] MEDS: ONDANSETRON INJ 4 MG/2 ML VIAL IV PUSH (01:58)
[2025-10-12] MEDS: SODIUM CHLORIDE 0.9% IV 1,000 ML 999 ML IV CONT ×2 (01:58→03:37)
[2025-10-12 02:11] LABS: Anion Gap 2 mmol/L (4-12); Blood Urea Nitrogen 12 mg/dL (7-17); Calcium 7.8 mg/dL (8.4-10.2); Carbon Dioxide 22 mmol/L (22-30); Chloride 110 mmol/L (98-107); Estimated CRCL calculation 104 ml/min; Estimated Glomerular Filt Rate > 60; Fibrinogen 246 mg/dl (215-510); Glucose 105 mg/dL (65-110); Potassium 3.7 mmol/L (3.4-5.0); Sodium 134 mmol/L (137-145)
[2025-10-12 02:12] LABS: INR 1.4; Prothrombin Time 16.9 Seconds (11.1-14.7)
[2025-10-12 02:13] LABS: Partial Thromboplastin Time 32.2 Seconds (22.3-36.8)
[2025-10-12 02:22] LABS: Troponin I < 0.012 ng/mL (0.000-0.034)
[2025-10-12 02:35] LABS: Influenza A QL RT-PCR Negative (Negative); Influenza B QL RT-PCR Negative (Negative); RSV RNA, RT-PCR Negative (Negative); SARS-CoV-2 RNA PCR Negative (Negative)
[2025-10-12] MEDS: MORPHINE SULFATE (*CRX) 4 MG/ML INJ 2 MG IV PUSH (03:39)
[2025-10-12 04:15] LABS: Creatine Kinase 115 U/L (30-135)
[2025-10-12] MEDS: SODIUM CHLORIDE 0.9% IV 1,000 ML 125 ML IV CONT ×3 (04:42→21:09)
--- NOTE | 2025-10-12 04:44 | ECG_ITS ---
Test Date: 2025-10-12 04:48:17 Measurements Intervals [place] Rate: 88 P: 63 AL: 130 QRS: 68 QRSD: 90 T: 64 QT: 373 QTc: 452 Interpretive Statements SINUS RHYTHM BORDERLINE T WAVE ABNORMALITY- ANTERIOR LEADS BORDERLINE ECG Compared to ECG 10/12/2025 01:58:06 Ventricular premature complex(es) no longer present Electronically Signed On 10-12-2025 06:20:29 FISH HATCHERY SUPERINTENDENT by Milo Rodriguez D.O.
--- NOTE | 2025-10-12 05:20 | WPCEDHO ---
ED Hand Off Checklist All vitals saved: Y IV Site documented: Y All med administrations documented: Y Triage Note Triage Note pt to ED via [facility] from 10/11/25 19:58 home with c/o N/V and chest pain that began around 1700 tonight. pt states she ate a steak that she made at home when the pain began. pt states she used meth yesterday. EMS administered 4 mg Zofran PO in route to ED. Allergies codeine Allergy (Unknown, Verified 12/23/24 15:13) Vomiting oxytocin Allergy (Unknown, Verified 12/23/24 15:13) Vomiting acetaminophen Adverse Reaction (Unknown, Verified 12/23/24 15:13) VOMITING Active Medications including assessments/comments Sodium Chloride (Normal Saline Iv) 1,000 mls @ 125 mls/hr IV CONT .Q8H SUNITHA Last Admin: 10/12/25 04:42 Dose: 125 mls/hr Documented By: MICAH Infusion/Titration Document 10/12/25 04:42 MICAH (Rec: 10/12/25 04:42 MICAH [id number]) Intake IV Site Peripheral Access Right Lateral Forearm Container Volume 1,000 Waste Amount 0 Dosing Infusion Rate 125 Cumulative Dose Not Applicable Increase/Decrease Started Elapsed Time Elapsed Time ( 0m minutes) Administered/Completed Medications Discontinued Medications Sodium Chloride (Normal Saline Iv) 1,000 mls @ 999 mls/hr IV CONT .Q1H1M STA Stop: 10/11/25 21:38 Last Infusion: 10/11/25 22:18 Dose: Infused Documented By: Admin: 10/11/25 21:01 Dose: 999 mls/hr Documented By: IMANI Potassium Chloride 40 meq/ (Sodium Chloride) 520 mls @ 130 mls/hr IVPB ONCE STA Stop: 10/12/25 01:25 Last Infusion: 10/12/25 03:00 Dose: Infused Documented By: Infusion: 10/12/25 01:58 Dose: 130 mls/hr Documented By: Infusion: 10/12/25 01:15 Dose: 0 mls/hr Documented By: Admin: 10/11/25 21:39 Dose: 130 mls/hr Documented By: IMANI Sodium Chloride (Normal Saline Iv) 1,000 mls @ 999 mls/hr IV CONT .Q1H1M STA Stop: 10/12/25 02:19 Last Infusion: 10/12/25 03:00 Dose: Infused Documented By: Admin: 10/12/25 01:58 Dose: 999 mls/hr Documented By: MICAH Sodium Chloride (Normal Saline Iv) 1,000 mls @ 999 mls/hr IV CONT .Q1H1M STA Stop: 10/12/25 04:12 Last Infusion: 10/12/25 04:28 Dose: Infused Documented By: Admin: 10/12/25 03:37 Dose: 999 mls/hr Documented By: MICAH Morphine Sulfate (Morphine Sulfate (*Crx) 4 Mg/Ml Inj) 2 mg IV PUSH ONCE ONE Stop: 10/12/25 03:13 Last Admin: 10/12/25 03:39 Dose: 2 mg Documented By: MICAH Ondansetron HCl (Ondansetron Inj 4 Mg/2 Ml Vial) 4 mg IV PUSH ONCE STA Stop: 10/12/25 01:55 Last Admin: 10/12/25 01:58 Dose: 4 mg Documented By: MICAH Potassium Chloride (Potassium Chloride 20 Meq Packet (For Liquid)) 40 meq PO ONCE STA Stop: 10/11/25 21:27 Last Admin: 10/11/25 21:38 Dose: 40 meq Documented By: IMANI Interventions/Assessments IV / Saline Lock, Insert Start: 10/11/25 20:38 Freq: STAT Status: Active Protocol: Document 10/11/25 21:00 HNK (Rec: 10/11/25 21:01 HNK [id number]) IV Assessment Peripheral Access Right Lateral Forearm IV Catheter Access Initiated IV Insertion Date 10/11/25 IV Insertion Time 21:00 Catheter Gauge 20 IV Insertion 1 Attempts Ultrasound Used for No Placement IV Site Assessment WNL IV Care and WNL Maintenance PA: Cardiovascular Assessment Start: 10/11/25 20:13 Freq: Status: Active Protocol: Document 10/11/25 21:00 LDD (Rec: 10/11/25 22:42 LDD [id number]) Cardiovascular Assessment Cardiovascular Chest Pain,Vomiting Symptoms Skin Description Normal Color Heart Sounds Normal Jugular Vein None Distention PA: Gastrointestinal Assessment Start: 10/11/25 19:54 Freq: Status: Active Protocol: Document 10/11/25 21:00 LDD (Rec: 10/11/25 22:42 LDD [id number]) GI Assessment Gastrointestinal Nausea,Vomiting Symptoms Description Flat,Soft Pattern Normal PA: Respiratory Assessment Start: 10/11/25 20:13 Freq: Status: Active Protocol: Document 10/11/25 21:00 LDD (Rec: 10/11/25 22:42 LDD [id number]) Respiratory Assessment Symptoms None Effort Normal Pattern Regular Depth Normal Chest Expansion Symmetrical Cough Description None Sputum Amount None Last Vital Signs Temperature 97.6 F 10/11/25 19:58 Pulse Rate 90 10/12/25 05:15 Respiratory Rate 19 10/12/25 05:15 Pulse Oximetry 100 10/12/25 05:15 Blood Pressure 95/64 L 10/12/25 05:15 Blood Pressure Mean 75 10/12/25 05:15 Blood Pressure Position Supine 10/11/25 19:58 Oxygen Delivery Room Air 10/11/25 19:58 Weight 87.1 kg 10/11/25 19:58 Last Result - Abnormals Only Plt Count 126 k/mm3 (150-375) L 10/11/25 21:00 MPV 10.6 fl (7.4-10.4) H 10/11/25 21:00 Neut % (Auto) 96.5 % (45.5-73.1) H 10/11/25 21:00 Lymph % (Auto) 2.5 % (18.3-44.2) L 10/11/25 21:00 [place] % (Auto) 0.2 % (2.6-8.5) L 10/11/25 21:00 Lymph # (Auto) 0.21 K/mm3 (0.9-3.2) L 10/11/25 21:00 [place] # (Auto) 0.0 K/mm3 (0.1-0.6) L 10/11/25 21:00 Absolute Neuts (auto) 8.0 K/mm3 (1.3-6.7) H 10/11/25 21:00 PT 16.9 Seconds (11.1-14.7) H 10/12/25 01:52 D-Dimer > 20.00 ug/mL (<0.48) H 10/12/25 01:52 Sodium 134 mmol/L (137-145) L 10/12/25 01:52 Potassium 2.8 mmol/L (3.4-5.0) L* 10/11/25 21:00 Chloride 110 mmol/L (98-107) H 10/12/25 01:52 Anion Gap 2 mmol/L (4-12) L 10/12/25 01:52 Creatinine 0.68 mg/dL (0.7-1.0) L 10/12/25 01:52 Calcium 7.8 mg/dL (8.4-10.2) L 10/12/25 01:52 AST 114 U/L (14-36) H 10/11/25 21:00 ALT 78 U/L (6-35) H 10/11/25 21:00 Urine Protein 1+ mg/dL (Negative) H 10/11/25 22:49 Ur Blood (Man) 2+ (Negative) H 10/11/25 22:49 Urine RBC 3-5 /hpf (0-2) H 10/11/25 22:49 Ur Amphetamine Screen Positive (Negative) A 10/11/25 22:49 U Cannabinoids Screen Positive (Negative) A 10/11/25 22:49 Most Recent Suicide Severity Rating Suicide Severity Rating NO RISK INDICATED 10/11/25 19:58
[2025-10-12 05:21] LABS: Troponin I < 0.012 ng/mL (0.000-0.034)
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
--- NOTE | 2025-10-12 06:29 | ADMGEN ---
This patient, Hortencia Hallman, was admitted to IMU Room 213-01. Patient/family oriented to hospital policies and general routines including ID bracelet, bed and alarms, visiting hours, pain management, procedures, bathroom and other care routines, personal items, smoking policy, room service/diet, and visiting hours. Information on how to activate the Rapid Response Team has been discussed. Patient/Family are encouraged to report perceived risks to care and to ask questions if they do not understand what they are told or what they should do.
[2025-10-12 08:06] LABS: Transferrin 209 mg/dL (206-381)
--- NOTE | 2025-10-12 08:51 | P.CONGI_ITS ---
Assessment and Plan Assessment and plan (1) Portal venous hypertension: Code(s): K76.6 - Portal hypertension Status: Acute (2) Abnormal finding on imaging: Code(s): R93.89 - Abnormal findings on diagnostic imaging of other specified body structures Status: Acute (3) Hepatomegaly: Code(s): R16.0 - Hepatomegaly, not elsewhere classified Status: Acute (4) Elevated liver transaminase level: Code(s): R74.01 - Elevation of levels of liver transaminase levels Status: Acute (5) Nausea and vomiting: Qualifiers: Vomiting type: bilious vomiting Qualified Code(s): R11.14 - Bilious vomiting Code(s): R11.2 - Nausea with vomiting, unspecified Status: Acute (6) Weight loss: Code(s): R63.4 - Abnormal weight loss Status: Acute (7) Appetite loss: Code(s): R63.0 - Anorexia Status: Acute (8) Acid reflux: Code(s): K21.9 - Gastro-esophageal reflux disease without esophagitis Status: Acute (9) Thrombocytopenia: Code(s): D69.6 - Thrombocytopenia, unspecified Status: Acute (10) Hypotension: Qualifiers: Hypotension type: unspecified hypotension type Qualified Code(s): I95.9 - Hypotension, unspecified Code(s): I95.9 - Hypotension, unspecified Status: Acute Plan 1. Abnormal imaging digestive/portal hypertension/gallbladder wall thickening/thrombocytopenia/hepatomegaly: No prior LFTs available for comparison or 2 determine if this is acute versus chronic in nature total bilirubin 0.6 and alkaline phosphatase 107 AST 114, ALT 78, albumin 3.7, INR 1.[address] with contrast performed today showed enlarged liver, probable portal hypertension, nonspecific periportal edema and nonspecific gallbladder wall thickening. No known prior Hx of liver disease. Patient does have a high risk lifestyle including IV methamphetamine use and 1 ppd smoker. Since admission patient has been experiencing hypotension with most recent vital showing BP 80/46. DDX: Acute infectious/inflammatory condition versus underlying liver disease versus biliary dyskinesia versus other hepatic etiology * These abnormal clinical/lab findings may be multifactorial in etiology including acute viral syndrome versus decreased blood flow secondary to hypotension versus chronic liver disease such as cirrhosis. * Some findings concerning for hypotension include portal hypertension periportal edema, gallbladder wall thickening. She is also noted to have elevated liver transaminase and thrombocytopenia. * CT previously ordered to further evaluate portal hypertension rule out thrombus, CT changed to retroperitoneal Doppler to further evaluate hepatic vasculature * based on results of liver workup there is a concern for chronic liver disease patient will need to follow up in the GI office outpatient for management and additional testing to include FibroScan 2. Nausea/vomiting/appetite loss/weight loss/acid reflux: Patient has never had an EGD. She admits to intermittent episodes of reflux that temporarily improves with p.r.n. Tums. Patient states she typically only eats 1 time a day and has been struggling with decreased appetite over the past 8 months. She also admits to a 20 lb weight loss over the past 8 months but this cannot be verified. She denies any medication or diet changes prior to onset of weight loss. She states that she has been using IV methamphetamines for 6 months and states that the weight loss that started before she started using. Nausea and vomiting has improved but not resolved since admission. DDX: Acid versus non acid reflux versus peptic ulcer disease versus gallbladder dysfunction versus drug-induced versus other GI etiology. * Continue supportive care with antiemetics and pain management * If symptoms persist patient was advised to follow up us in the GI office outpatient for additional workup and/or treatment 3. Hypotension: Patient with hypotension since admission with last vitals showing B/P: 80/46. * Primary care team to continue monitoring and manage Thank you very much for allowing me to share in the care of this very nice patient. This report may have been done utilizing a voice recognition system. Attempts have been made to correct errors. However, there may be uncorrected grammatical, spelling, and recognition errors present. GI Consult Note Consult date/time: 10/12/25 08:51 Reason for consult: Abnormal imaging digestive HPI: Hortencia Hallman is a 39 year old female with PMSH of tobacco use, marijuana use and methamphetamine use. She presented to the ER yesterday with complaints of chills, nausea and vomiting. Patient states that prior to admission she was having chest pain, cold sweats and fever but her fever was not measured. Her nausea and vomiting has improved since admission. Over the past 8 months she complains of a decreased appetite and a 20 lb weight loss that she states was unintentional. She denies any recent change in medications or diet. She does state that she started using methamphetamine 6 months ago but was having weight loss prior to starting. She is having a formed non urgent bowel movement every 1-2 days. Denies abdominal pain, bloating, odynophagia dysphagia, uncontrolled reflux, early satiety, diarrhea, constipation. She uses ibuprofen on as-needed basis a few. Denies any use. She uses IV methamphetamines, marijuana and smokes 1 per day. Denies alcohol use. Family history negative for CRC or IBD. ENDOSCOPY HISTORY: Patient has never had an EGD or colonoscopy LABS AND STOOL STUDIES: Labs 10/11/2025: Sodium 134, potassium 3.7, BUN 12, creatinine 0.68, GFR >60, calcium 7.8 WBC 8, Hgb 13, Hct 40, MCV 89, platelets 126 Total bilirubin 0.6, AST 114, ALT 78, Alkaline Phos 107 Remaining of liver workup still pending IMAGING: CT abd/pelvis w/contrast 10/12/2025: IMPRESSION: 1. Probable portal hypertension. 2. Nonspecific periportal edema. 3. Nonspecific gallbladder wall thickening. Review of Systems 2 Constitutional: Constitutional: Reports as per HPI ENT: Reports as per HPI Cardiovascular: Cardiovascular: Reports as per HPI, Denies chest pain and Denies dyspnea Respiratory: Respiratory: Denies cough and Denies dyspnea Gastrointestinal: Gastrointestinal: Reports as per HPI Musculoskeletal: Musculoskeletal: Reports as per HPI Integumentary/Breasts: Skin/Breast: Reports as per HPI Psychiatric: Psychiatric: Reports as per HPI Endocrine: Endocrine: Reports no additional endocrine complaints Hematologic/Lymphatic: Hematologic/Lymphatic: Reports no additional hematologic/lymphatic complaints [facility] Past Medical History Medical History (Updated 10/12/25 @ 12:21 by Renata Lorenzana APRN) Hypotension Hepatitis C Family History Family History Father Diabetes mellitus Social History Social History Smoking packs per day: 1 Smoking cigarettes per day: 20.0 Years smoked: 20 Smoking pack-years: 20.00 Smoking status: Current every day smoker Tobacco type: cigarettes Second hand tobacco smoke exposure: No Alcohol intake: current Substance use type: marijuana and methamphetamine Last use: 10/09/25 methamphetamine used Lack of Transportation: No Lack of Food: Often True Current Housing: I Have Housing Concerned About Future Housing: YES Difficulty Paying Gas/Electric Bills: YES Difficulty Paying for Meds: YES Currently Unemployed: YES Education: Associate Degree Difficulty w/ Childcare or Family Care: No Gender identity (if verbalized by the patient): Female Spiritual care concerns: No Meds Home Medications and Allergies Allergies Allergy/AdvReac Type Severity Reaction Status Date / Time codeine Allergy Unknown Vomiting Verified 10/12/25 06:15 oxytocin Allergy Unknown Vomiting Verified 10/12/25 06:15 Vital Signs Vital Signs - 24 hr 10/11/25 19:58 10/11/25 23:13 10/11/25 23:15 Temperature 97.6 F Pulse Rate 112 H 102 H 104 H Respiratory Rate 16 13 14 Blood Pressure 105/56 L 95/60 L 91/63 L Pulse Oximetry 100 100 100 Oxygen Delivery Room Air 10/11/25 23:30 10/11/25 23:45 10/12/25 00:00 Temperature Pulse Rate Respiratory Rate Blood Pressure 94/70 L 93/67 L 91/68 L Pulse Oximetry 100 99 100 Oxygen Delivery 10/12/25 00:15 10/12/25 00:30 10/12/25 00:45 Temperature Pulse Rate Respiratory Rate Blood Pressure 98/68 L 94/63 L 94/66 L Pulse Oximetry 99 100 99 Oxygen Delivery 10/12/25 01:00 10/12/25 01:15 10/12/25 02:21 Temperature Pulse Rate 99 99 Respiratory Rate 18 17 Blood Pressure 93/60 L 96/64 L 94/61 L Pulse Oximetry 100 100 98 Oxygen Delivery 10/12/25 02:30 10/12/25 02:45 10/12/25 03:00 Temperature Pulse Rate 92 93 93 Respiratory Rate 20 16 14 Blood Pressure 94/65 L 95/68 L 94/54 L Pulse Oximetry Oxygen Delivery 10/12/25 03:38 10/12/25 03:45 10/12/25 04:00 Temperature Pulse Rate 91 98 90 Respiratory Rate 14 18 19 Blood Pressure 94/64 L 98/62 L 100/68 Pulse Oximetry 100 100 100 Oxygen Delivery 10/12/25 04:15 10/12/25 04:30 10/12/25 04:45 Temperature Pulse Rate 89 90 89 Respiratory Rate 18 19 18 Blood Pressure 97/66 L 98/64 L 99/64 L Pulse Oximetry 100 100 100 Oxygen Delivery 10/12/25 05:00 10/12/25 05:15 10/12/25 06:13 Temperature 97.5 F L Pulse Rate 90 90 82 Respiratory Rate 19 19 16 Blood Pressure 96/63 L 95/64 L 90/56 L Pulse Oximetry 100 100 100 Oxygen Delivery 10/12/25 06:32 10/12/25 08:00 Temperature 97.5 F L Pulse Rate 82 86 Respiratory Rate 16 20 Blood Pressure 80/46 L Pulse Oximetry 100 97 Oxygen Delivery Room Air Exam 2 Const: General: cooperative, healthy appearing, comfortable, no acute distress and well developed Orientation/consciousness: oriented to person, oriented to place, oriented to time and patient oriented x3 HENMT: Head: normal to inspection, normocephalic and atraumatic Mouth: Yes Normal oral and palatal mucosa present and Yes moist mucous membranes Eyes: General: appearance normal, both eyes and all related structures C onjunctivae: conjunctivae normal Sclera: sclerae normal Pupils: Equal, round and reactive pupils present Neck: Neck: normal visual inspection Chest: Chest palpation & inspection: normal inspection of the chest Resp: Effort & Inspection: normal respiratory effort and able to speak in complete sentences Auscultation: clear to auscultation bilaterally Cardio: Jugular venous distension: no JVD Rate: regular rate Rhythm: r egular rhythm Heart sounds: S1 normal heart sound present and S2 normal heart sound present GI: Inspection: normal to inspection GI Palp: Yes Soft to palpation and Yes No hepatosplenomegaly present Auscultation: normal bowel sounds Rectal Exam: deferred Skin: General skin exam: normal color and no rashes or lesions noted Neuro: General: oriented to person, oriented to place, oriented to time and patient oriented x3 Cranial nerves: Yes Equal, round and reactive pupils present Speech: normal speech Extrem: General: normal to inspection and no clubbing, cyanosis or edema Psych: Appearance: grossly normal and well kempt Affect: normal affect Results Labs 10/11/25 21:00 10/12/25 01:52 Labs: Short CBC 10/11/25 Range/Units 21:00 WBC 8.3 (4.5-10.0) K/mm3 Hgb 13.2 (12.0-15.0) g/dL Hct 40.4 (37.0-47.0) % Plt Count 126 L (150-375) k/mm3 BMP 10/11/25 10/12/25 21:00 01:52 Sodium 134 L 134 L Potassium 2.8 L* 3.7 Chloride 108 H 110 H Carbon Dioxide 23 22 BUN 13 12 Creatinine 0.72 0.68 L Glucose 97 105 Calcium 8.1 L 7.8 L Cardiac Enzymes 10/11/25 10/12/25 10/12/25 Range/Units 21:00 01:52 04:52 Total Creatine Kinase 115 (30-135) U/L Troponin I < 0.012 < 0.012 < 0.012 (0.000-0.034) ng/mL Liver Function 10/11/25 Range/Units 21:00 Total Bilirubin 0.6 (0.2-1.3) mg/dL AST 114 H (14-36) U/L ALT 78 H (6-35) U/L Alkaline Phosphatase 107 (38-126) U/L Albumin 3.7 (3.5-5.1) g/dL Urine 10/11/25 Range/Units 22:49 Urine Color Yellow (Yellow) Urine Appearance Clear (Clear) Urine pH 5.5 (5.0-9.0) Ur Specific [place] 1.015 (1.001-1.035) Urine Protein 1+ H (Negative) mg/dL Urine Glucose (UA) Negative (Negative) mg/dL
[2025-10-12] MEDS: PANTOPRAZOLE SODIUM IV 40 MG VIAL IV PUSH (09:55)
[2025-10-12] MEDS: MIDODRINE HCL 10 MG TABLET PO (09:55)
[2025-10-12 09:59] LABS: Hepatitis B Surface Antigen Negative (Negative)
[2025-10-12 10:04] LABS: Ferritin 24.60 ng/mL (6.24-137); HAV RESULT Negative (Negative); Hepatitis B Core IgM Result Negative (Negative)
[2025-10-12 10:07] LABS: HIV 1/2 Ab P24 Ag Result Negative (Negative)
--- NOTE | 2025-10-12 11:56 | P.PNIM_ITS ---
Assessment and Plan Assessment and Plan (1) Substance abuse: Code(s): F19.10 - Other psychoactive substance abuse, uncomplicated Status: Acute Assessment and Plan: - check HIV 4th generation antibody testing as well. (2) Hypotension: Code(s): I95.9 - Hypotension, unspecified Status: Acute Assessment and Plan: - - >reflection of SIRS syndrome or hypovolemia? - potentially unknwon direct cause - portal HTN, Viral syndrome, IV meth use vs withdraw, dehydration - IV fluids to continue - Midodrine prn for systolic less than 90 - monitor labs closely (3) Elevated d-dimer: Code(s): R79.89 - Other specified abnormal findings of blood chemistry Status: Acute Assessment and Plan: D-dimer seems high to be only related to a viral syndrome. - CTA chest - No PE, no leg swelling or pain. - incidental finding and further workup will proceed with hepatitis and cirrhosis workup. - known IV methamphetamine daily user. (4) Gastritis: Code(s): K29.70 - Gastritis, unspecified, without bleeding Status: Acute Assessment and Plan: - initially N/V when presenting to ER - Quad viral screen negative, check full respiratory viral pathogen panel. -Continue supportive care. - noted to have resolved. - IV fluids x 3L in ER, antiemetics - consulted GI (5) Portal venous hypertension: Code(s): K76.6 - Portal hypertension Status: Acute Assessment and Plan: - CT noted Evidence of periportal edema and splenomegaly along with transaminitis, thrombocytopenia, - INR 1.4 raise concern for liver pathology. - Hepatic vein thrombosis? Consulted GI for abnormal Liver function/Portal HTN, enlarged GallBladder - GI noted - abnormal clinical/lab findings may be multifactorial in etiology including acute viral syndrome versus decreased blood flow secondary to hypotension versus chronic liver disease such as cirrhosis. -Some findings concerning for hypotension include portal hypertension periportal edema, gallbladder wall thickening. She is also noted to have elevated liver transaminase and thrombocytopenia. -CT previously ordered to further evaluate portal hypertension rule out thrombus, CT changed to retroperitoneal Doppler to further evaluate hepatic vasculature -based on results of liver workup there is a concern for chronic liver disease patient will need to follow up in the GI office outpatient for management and additional testing to include FibroScan (6) Dehydration: Code(s): E86.0 - Dehydration Status: Acute Assessment and Plan: - improved after 3 L bolus in ER, - IV fluids continuing - montior labs closely (7) Acute hypokalemia: Code(s): E87.6 - Hypokalemia Status: Acute Assessment and Plan: - repleted in ER improved - continue to monitor (8) Lesion of left ovary: Code(s): N83.9 - Noninflammatory disorder of ovary, fallopian tube and broad ligament, unspecified Status: Acute Assessment and Plan: - Left ovarian lesion may reflect cyst or malignant disease. - Transvaginal ultrasound ordered. - will need outpatient follow up Plan * circular pink/white flat lesions the size of a dime x2 on the left chin and cheek. She reports picking/scratching at an ingrown hair, there is some concern for dermatological manifestations of hepatitis as well. Patient denies skin popping. Consult care coordination for abuse. ----- Patient wishes to be full code SCDs. Disposition - patient will be discharged home with outpatient follow ups once stable. Medical Record Review I have reviewed the following patient records and this information was taken into consideration when formulating the assessment and plan.: previous labs Consultations Consultations: I have discussed the care of this pt with the consulting providers. Time Spent With Patient Time with patient: Greater than 35 minutes Subjective Date/time seen: 10/12/25 11:56 Interval history: Patient today reports feeling increasingly tired. Patient arrived on the floor shortly after 6 am. Patient states she feels much better, no further nausea. Patient states she has not used Meth in a few days. Her normal withdraw symptoms included increased fatigue, sleeping for extended periods and body aches. patient denies any body aches, dizziness, or distress. no fever, chills, N/V/D. Review of Systems Review of Systems: All systems reviewed & are unremarkable except as noted in HPI and below (Subjective) Exam Const: General: comfortable and no acute distress Other: A&O x3 HENMT: Mouth: Yes dry mucous membranes Other: Healing scab in the initial ages of healing x2 the size of a dime on the patient's left chin and cheek. No purulence, no erythema. Eyes: Pupils: Equal, round and reactive pupils present Neck: Neck: supple Resp: Effort & Inspection: normal respiratory effort Auscultation: clear to auscultation bilaterally Cardio: Rate: regular rate Rhythm: regular rhythm GI: Inspection: non-distended : General: Yes bladder normal to palpation Bimanual exam- vagina & uterus: bladder normal to palpation Neuro: Cranial nerves: Yes Equal, round and reactive pupils present Motor exam (neuro): 5/5 motor strength present throughout Extrem: General: no edema Objective Data Vital Signs Vital Signs: Vital Signs - 24 hr 10/11/25 19:58 10/11/25 23:13 10/11/25 23:15 Temperature 97.6 F Pulse Rate 112 H 102 H 104 H Respiratory Rate 16 13 14 Blood Pressure 105/56 L 95/60 L 91/63 L Pulse Oximetry 100 100 100 Oxygen Delivery Room Air 10/11/25 23:30 10/11/25 23:45 10/12/25 00:00 Temperature Pulse Rate Respiratory Rate Blood Pressure 94/70 L 93/67 L 91/68 L Pulse Oximetry 100 99 100 Oxygen Delivery 10/12/25 00:15 10/12/25 00:30 10/12/25 00:45 Temperature Pulse Rate Respiratory Rate Blood Pressure 98/68 L 94/63 L 94/66 L Pulse Oximetry 99 100 99 Oxygen Delivery 10/12/25 01:00 10/12/25 01:15 10/12/25 02:21 Temperature Pulse Rate 99 99 Respiratory Rate 18 17 Blood Pressure 93/60 L 96/64 L 94/61 L Pulse Oximetry 100 100 98 Oxygen Delivery 10/12/25 02:30 10/12/25 02:45 10/12/25 03:00 Temperature Pulse Rate 92 93 93 Respiratory Rate 20 16 14 Blood Pressure 94/65 L 95/68 L 94/54 L Pulse Oximetry Oxygen Delivery 10/12/25 03:38 10/12/25 03:45 10/12/25 04:00 Temperature Pulse Rate 91 98 90 Respiratory Rate 14 18 19 Blood Pressure 94/64 L 98/62 L 100/68 Pulse Oximetry 100 100 100 Oxygen Delivery 10/12/25 04:15 10/12/25 04:30 10/12/25 04:45 Temperature Pulse Rate 89 90 89 Respiratory Rate 18 19 18 Blood Pressure 97/66 L 98/64 L 99/64 L Pulse Oximetry 100 100 100 Oxygen Delivery 10/12/25 05:00 10/12/25 05:15 10/12/25 06:13 Temperature 97.5 F L Pulse Rate 90 90 82 Respiratory Rate 19 19 16 Blood Pressure 96/63 L 95/64 L 90/56 L Pulse Oximetry 100 100 100 Oxygen Delivery 10/12/25 06:32 10/12/25 08:00 10/12/25 10:00 Temperature 97.5 F L Pulse Rate 82 86 Respiratory Rate 16 20 Blood Pressure 80/46 L 90/57 L Pulse Oximetry 100 97 Oxygen Delivery Room Air Intake/Output Intake/Output: Intake & Output 10/09/25 10/10/25 10/11/25 10/12/25 23:59 23:59 23:59 23:59 Intake Total 1000 2640 Balance 1000 2640 Meds/Results Medications: Active Medications Generic Name Dose Route Start Last Admin Trade Name Freq PRN Reason Stop Dose Admin Sodium Chloride 1,000 mls @ 125 mls/hr 10/12/25 04:15 10/12/25 04:42 Normal Saline Iv IV CONT 125 mls/hr .Q8H SUNITHA Administration Ibuprofen 600 mg 10/12/25 11:45 Ibuprofen 600 Mg Tablet PO Q6H PRN Pain Rated 1-3 Midodrine 10 mg 10/12/25 09:06 10/12/25 09:55 Midodrine Hcl 10 Mg Tablet PO 10 mg TID PRN Administration Hypotension Ondansetron HCl 4 mg 10/12/25 04:15 Ondansetron Inj 4 Mg/2 Ml Vial IV PUSH Q4H PRN Nausea Pantoprazole Sodium 40 mg 10/12/25 09:00 10/12/25 09:55 Pantoprazole Sodium Iv 40 Mg Vial IV PUSH 40 mg QAM SUNITHA Administration Tramadol HCl 25 mg 10/12/25 06:07 Tramadol Hcl (*Crx) 25 Mg Tablet PO Q4H PRN Pain Rated 4-6 Radiology Results: ITS Impressions Chest X-Ray 10/11/25 20:56 IMPRESSION: No acute lung findings.] [ ] Chest CTA 10/12/25 06:30 IMPRESSION: 1. No pulmonary embolus. Head CT 10/12/25 06:37 IMPRESSION: 1. No acute intracranial findings. Abdomen/Pelvis CT 10/12/25 06:38 IMPRESSION: 1. Probable portal hypertension. 2. Nonspecific periportal edema. 3. Nonspecific gallbladder wall thickening. Labs Labs: Laboratory Results - last 24 hr 10/11/25 10/11/25 10/11/25 21:00 22:49 22:53 WBC 8.3 RBC 4.56 Hgb 13.2 Hct 40.4 MCV 88.6 MCH 28.9 MCHC 32.7 RDW 13.2 Plt Count 126 L MPV 10.6 H Immature Gran % (Auto) 0.4 Neut % (Auto) 96.5 H Lymph % (Auto) 2.5 L [place] % (Auto) 0.2 L Eos % (Auto) 0.0 Baso % (Auto) 0.4 Lymph # (Auto) 0.21 L [place] # (Auto) 0.0 L Eos # (Auto) 0.0 Baso # (Auto) 0.0 Abs Immat Gran (auto) 0.03 Absolute Neuts (auto) 8.0 H Absolute Nucleated RBC 0.000 Nucleated RBC % 0.0 PT INR APTT Fibrinogen D-Dimer > 20.00 H Sodium 134 L Potassium 2.8 L* Chloride 108 H Carbon Dioxide 23 Anion Gap 3 L BUN 13 Creatinine 0.72 Estim Creat Clear Calc 99 Estimated GFR > 60 Glucose 97 Lactic Acid Calcium 8.1 L Magnesium 1.6 Transferrin Ferritin Total Bilirubin 0.6 AST 114 H ALT 78 H Alkaline Phosphatase 107 Total Creatine Kinase Troponin I < 0.012 NT-Pro-B Natriuret Pep 76 Total Protein 6.8 Albumin 3.7 Lipase 48 TSH (Reflex) 0.793 Urine Color Yellow Urine Appearance Clear Urine pH 5.5 Ur Specific [place] 1.015 Urine Protein 1+ H Urine Glucose (UA) Negative Urine Ketones Negative Ur Blood (Man) 2+ H Urine Nitrate Negative Urine Bilirubin Negative Urine Urobilinogen 1.0 Leukocyte Esterase Rfl Negative Urine RBC 3-5 H Urine WBC 0-5 Ur Squamous Epith Cells Occasional Urine Bacteria None seen Urine Casts 3-5 POC Urine HCG, Qual Negative Urine Opiates Screen Negative Urine Methadone Screen Negative Ur Barbiturates Screen Negative Ur Phencyclidine Scrn Negative Ur Amphetamine Screen Positive A U Benzodiazepines Scrn Negative Urine Cocaine Screen Negative U Cannabinoids Screen Positive A Ethyl Alcohol < 10 Hepatitis A IgM Ab Hep Bs Antigen Hep B Core IgM Ab Hepatitis C Ab Screen HIV 1&2 Ab/P24 Ag 4thGn Influenza A (RT-PCR) Influenza B (RT-PCR) RSV (RT-PCR) SARS-CoV-2 RNA (RT-PCR) 10/12/25 10/12/25 10/12/25 01:52 04:52 08:35 WBC RBC Hgb Hct MCV MCH MCHC RDW Plt Count MPV Immature Gran % (Auto) Neut % (Auto) Lymph % (Auto) [place] % (Auto) Eos % (Auto) Baso % (Auto) Lymph # (Auto) [place] # (Auto) Eos # (Auto) Baso # (Auto) Abs Immat Gran (auto) Absolute Neuts (auto) Absolute Nucleated RBC Nucleated RBC % PT 16.9 H INR 1.4 APTT 32.2 Fibrinogen 246 D-Dimer > 20.00 H Sodium 134 L Potassium 3.7 Chloride 110 H Carbon Dioxide 22 Anion Gap 2 L BUN 12 Creatinine 0.68 L Estim Creat Clear Calc 104 Estimated GFR > 60 Glucose 105 Lactic Acid 1.3 Calcium 7.8 L Magnesium Transferrin 209 Ferritin 24.60 Total Bilirubin AST ALT Alkaline Phosphatase Total Creatine Kinase 115 Troponin I < 0.012 < 0.012 NT-Pro-B Natriuret Pep Total Protein Albumin Lipase TSH (Reflex) Urine Color Urine Appearance Urine pH Ur Specific [place] Urine Protein Urine Glucose (UA) Urine Ketones Ur Blood (Man) Urine Nitrate Urine Bilirubin Urine Urobilinogen Leukocyte Esterase Rfl Urine RBC Urine WBC Ur Squamous Epith Cells Urine Bacteria Urine Casts POC Urine HCG, Qual Urine Opiates Screen Urine Methadone Screen Ur Barbiturates Screen Ur Phencyclidine Scrn Ur Amphetamine Screen U Benzodiazepines Scrn Urine Cocaine Screen U Cannabinoids Screen Ethyl Alcohol Hepatitis A IgM Ab Negative Hep Bs Antigen Negative Hep B Core IgM Ab Negative Hepatitis C Ab Screen Reactive HIV 1&2 Ab/P24 Ag 4thGn Negative Influenza A (RT-PCR) Negative Influenza B (RT-PCR) Negative RSV (RT-PCR) Negative SARS-CoV-2 RNA (RT-PCR) Negative Quality VTE Prophylaxis VTE prophylaxis: mechanical ordered Hospitalist MIPS Advance Care Plan I have confirmed that the patient's Advanced Care Plan is present, code status is documented, or surrogate decision maker is listed in patient medical record.: Yes Medication Reconciliation I have utilized all available resources to obtain, update and review the patients current medications (includes all prescriptions, OTC, herbals, cannabis, and nutritional supplements).: Yes
[2025-10-12] MEDS: IBUPROFEN 600 MG TABLET PO ×2 (12:02→21:47)
[2025-10-12] MEDS: traMADol HCL (*CRX) 25 MG TABLET PO (18:18)
[2025-10-13] VITALS: BP 94/49; PULSE 81; PULSE 96; RESP 18; TEMP 36.8; O2SAT 100
[2025-10-13 02:00] VITALS: PULSE 77
[2025-10-13 04:00] VITALS: BP 129/77; PULSE 70; PULSE 71; RESP 18; TEMP 36.6; O2SAT 100
[2025-10-13 06:00] VITALS: PULSE 62
[2025-10-13] MEDS: SODIUM CHLORIDE 0.9% IV 1,000 ML 125 ML IV CONT (06:00)
[2025-10-13 07:58] VITALS: BP 122/73; PULSE 83; RESP 18; TEMP 36.7; O2SAT 98
--- NOTE | 2025-10-13 08:20 | PC.NURSE ---
PT REFUSING TELE MONITOR STATING IT WEIGHS ME DOWN. PT REFUSING LABS. PATIENT REFUSING HOSPITAL SOCKS. PT TURNING OFF IV PUMP.RN LOCK IV PUMP. MADE AWARE. PT EDUCATED IMPORTANCE OF HEART MONITOR AND LABS. PT STILL REFUSING. CONT TO MONITOR.
--- NOTE | 2025-10-13 09:40 | PM.DS ---
DS: Summary Time Spent with Patient Time attestation: Total time spent providing and/or coordinating discharge services: DS: Data Data Completed and Pending Labs on day of discharge: Labs from last 24 hours 10/12/25 10/12/25 08:35 04:52 Ferritin 24.60 Hepatitis A IgM Ab Negative Hep Bs Antigen Negative Hep B Core IgM Ab Negative Hepatitis C Ab Screen Reactive Hepatitis C RNA Quant Pending HCV RNA (PCR) log10 Pending HIV 1&2 Ab/P24 Ag 4thGn Negative Discharge Plan Discharge Attending physician on discharge: Kevin Pete Discharging Clinician: Addis Chowdary Patient Disposition: Home Activity: as tolerated Diet: as tolerated Discharge Instructions: Please follow up with Gastroenterology as an outpatient for the remainder of your test results and to determine further treatment related to your liver. Patient Instructions: Antibiotic Form, How to Stop Smoking (DC), Hypotension (GEN), Methamphetamine Use Disorder (GEN) Patient Language: Slovak Stand Alone Forms: General Discharge Information Follow-up/Referrals: PHYSICIAN,INSURANCE OFFICE MANAGER [Primary Care Provider, Internal Medicine] Referral Note: please call your PCP for a follow up within 1-2 weeks of discharge. Hilario Carrero MD [Physician, Gastroenterology] Referral Note: Please call to set up an appointment to discuss treatment options for your hepatitis C and liver problems. Discharge Medications: No Action No Home Medications Date of admission: 10/12/25 04:16 Primary Care Provider: PHYSICIAN,INSURANCE OFFICE MANAGER Admitting Provider: Meghana Chavarria Attending physician on admission: Meghana Chavarria Condition: Stable
[2025-10-13] MEDS: PANTOPRAZOLE 40 MG TABLET PO (09:46)
[2025-10-16 01:07] LABS: Copper, Serum or Plasma 79 ug/dL (80-158)
[2025-10-17 16:08] LABS: ALT (SGPT) P5P 63 IU/L (0-40); AST (SGOT) P5P 57 IU/L (0-40); Alpha 2-Macroglobulins, Qn 137 mg/dL (110-276); Bilirubin, Total <0.2 mg/dL (0.0-1.2); Cholesterol, Total 89 mg/dL (100-199); GGT 33 IU/L (0-60); Glucose 124 mg/dL (70-99); Triglycerides 73 mg/dL (0-149)
== END 2025-10-13 10:49 | disposition home or self-care (01) ==
LOC: ANHED 10-12 04:17 → ANHIMU 10-12 08:21
PROVIDERS: Registered Nurse; Admitting Provider General Practice; Emergency Provider Student in an Organized Health Care Education/Training Program; Visit Provider Family Medicine
DX: F19.10 Other psychoactive substance abuse, uncomplicated (principal); I95.9 Hypotension, unspecified; R79.89 Other specified abnormal findings of blood chemistry; K29.70 Gastritis, unspecified, without bleeding; K76.6 Portal hypertension; E86.0 Dehydration; E87.6 Hypokalemia; R93.89 Abnormal findings on diagnostic imaging of other specified body structures; R16.0 Hepatomegaly, not elsewhere classified; R74.01 Elevation of levels of liver transaminase levels; R11.14 Bilious vomiting; R63.4 Abnormal weight loss; R63.0 Anorexia; K21.9 Gastro-esophageal reflux disease without esophagitis; D69.6 Thrombocytopenia, unspecified; N83.9 Noninflammatory disorder of ovary, fallopian tube and broad ligament, unspecified; E66.811 Obesity, class 1; Z68.32 Body mass index [BMI] 32.0-32.9, adult; F17.210 Nicotine dependence, cigarettes, uncomplicated; F12.90 Cannabis use, unspecified, uncomplicated; Z20.822 Contact with and (suspected) exposure to COVID-19; Z86.19 Personal history of other infectious and parasitic diseases; Z83.3 Family history of diabetes mellitus
CPT/HCPCS: 0202U; 36415; 70450; 71046; 71275; 74177; 76856; 80048; 80053; 80074; 80307; 81001; 81025; 82077; 82105; 82172; 82247; 82465; 82525; 82550; 82677; 82728; 82947; 82977; 83010; 83605; 83690; 83735; 83880; 83883; 84443; 84450; 84460; 84466; 84478; 84484; 84702; 85025; 85380; 85384; 85610; 85730; 86015; 86336; 86703; 87522; 87637; 93005; 93976; 96360; 96361; 96365; 96366; 96374; 96375; 99285; A9270; G0378; G0432; J2270; J2405; J2470; J3480; J7030; J7040; Q9967